=== PATIENT | male | born 1955 | race Caucasian/White ===

== ENCOUNTER 2017-01-30 20:28 | Emergency (ER) | payer OTHER ==
[2017-01-30] MEDS ORDERED: Ketorolac INJ* 60 MG/2 ML VIAL IM ONE (22:41)
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
[2017-01-31 00:36] VITALS: BP 92/77
--- NOTE | 2017-01-31 07:46 | RAD ---
Indication: RIGHT rib and RIGHT medial pelvic pain following traumatic injury. Comparison: No relevant prior exams available on the [facility] [place] PACS for comparison. Technique: AP pelvis. Report: There is irregular cortical contour at the junction of the RIGHT superior ramus with the os pubis which while not definitive concerning for potential acute fracture given the clinical context. Alternatively this may represent a false positive due to superimposed surgical clips in setting of previous prostate region surgery. Normal alignment of the hips in AP projection. Negative for pelvic joint diastases. Subchondral sclerosis and osteophytosis at the LEFT sacroiliac joint consistent with osteoarthritis. Unremarkable soft tissue contours. IMPRESSION: Potential fracture at the junction of the RIGHT superior pubic ramus and osseous pubis. Alternatively this may represent a false positive due to superimposed surgical clips in setting of previous prostate region surgery. Correlate with clinical assessment and consider CT for further evaluation if deemed appropriate.
--- NOTE | 2017-01-31 07:49 | RAD ---
Indication: RIGHT side rib pain following traumatic injury. Comparison: December 02, 2012 Technique: PA chest and supine 3 view RIGHT rib series. Report: Elevated lung volumes and diffuse rarefaction of the interstitial markings. Marker indicates region of clinical concern is at the level of the approximate seventh rib laterally. No RIGHT rib fracture, pulmonary contusion, pleural effusion, or pneumothorax. The heart, pulmonary vasculature, and mediastinal contours are unremarkable. IMPRESSION: 1. Stigmata of chronic obstructive pulmonary disease and emphysema. 2. No RIGHT rib fracture or pneumothorax evident.
--- NOTE | 2017-01-31 22:11 | PN ---
Progress Note - Progress Note Note: Laceration repair. Laceration to the right dorsum of forearm Measuring 5cm length, superficial depth and .25cm width. Cleansed wound. Lidocaine with epi 1% used for anesthetic. 4-0 non-absorbable prolene sutures placed. 9 sutures placed. Patient tolerated well. Gauze wrapped.
== END 2017-01-31 00:34 | disposition home or self-care (01) ==
LOC: ED 20:28
DX: S51.812A Laceration without foreign body of left forearm, initial encounter (principal); W31.9XXA Contact with unspecified machinery, initial encounter; Y93.9 Activity, unspecified; Y92.9 Unspecified place or not applicable; Y99.9 Unspecified external cause status
CPT/HCPCS: 72170; 96372; 99282; J1885